=== PATIENT | female | born 1975 | race Two or more races ===

== ENCOUNTER 2023-01-30 07:08 | Day surgery (SDC) | payer MEDICAID ==
[~2023-01-30] VITALS: Ht 167.6 cm; Wt 113.4 kg
[2023-01-30] VITALS (9 sets, daily range): BP systolic 135–172; BP diastolic 68–92; PULSE 47–61; RESP 12–26; O2SAT 92–98
[~2023-01-30 07:08] MED LIST: ESCI5TAB PO; FENO145T27 PO; GABA-1250 PO; HYDRX10T PO; LEVO100T8 PO; MELO-335 PO; METO-158 PO; OLAN1TAB7 PO; ONDA-155 PO; OXY5T GT; POM; TIZA2CAP7 PO
[2023-01-30] MEDS ORDERED: LIDOCAINE 2%HCL (LOCAL ANESTH.) INJ 20ML MDV ONE (07:32)
[2023-01-30] MEDS ORDERED: IODIXANOL 320MG/ML 100ML BTL IV ONE (07:32)
[2023-01-30] MEDS ORDERED: IOHEXOL 350 MG/ML 100ML IJ ONE (07:32)
[2023-01-30] MEDS ORDERED: MIDAZOLAM HCL 2MG/2ML 2ml VIAL (1mg/ml) IV ONE (07:45)
[2023-01-30] MEDS ORDERED: LIDOCAINE VISCOUS 2% 15ML UD PO ONE (07:45)
[2023-01-30] MEDS ORDERED: ONDANSETRON HCL 4 MG/2 ML VIAL IV ONE (07:45)
[2023-01-30] MEDS ORDERED: fentaNYL CITRATE 100 MCG/2 ML VL IV ONE (07:45)
[2023-01-30] MEDS ORDERED: ANGIOMAX 250 MG VIAL IV ONE (08:16)
[2023-01-30] MEDS ORDERED: FLUMAZENIL 0.1 MG/ML INJ 10ML MDV IV ONE (08:16)
[2023-01-30] MEDS ORDERED: SODIUM CHL 0.9% 0 ML ONE (08:16)
[2023-01-30] MEDS ORDERED: NALOXONE HCL 0.4 MG/ML VIAL ONE (08:16)
[2023-01-30] MEDS ORDERED: VERAPAMIL 2.5MG/ML INJ 2ML VIAL IV ONE (08:16)
[2023-01-30] MEDS ORDERED: SODIUM CHL 0.9% 50 ML ONE ×2 (08:20→08:27)
[2023-01-30] MEDS ORDERED: HEPARIN SODIUM (PORCINE) 5000 UNITS/ML 1ML VIAL ONE (09:14)
== END 2023-01-30 11:35 | disposition home or self-care (01) ==
LOC: CATH 07:08
PROVIDERS: ATTEND Internal Medicine
DX: R07.89 Other chest pain (principal); I08.3 Combined rheumatic disorders of mitral, aortic and tricuspid valves
CPT/HCPCS: 93312; 93454; C1725; C1769; C1894; J1644; J2250; J3010; Q9967; 99152; 99153

== ENCOUNTER 2024-02-20 21:30 | Inpatient (IN) | payer MEDICAID ==
[~2024-02-20] VITALS: Ht 167.6 cm; Wt 110.2 kg
[~2024-02-20 21:30] MED LIST changes: -MELO-335 PO; +MELO15TA29 PO
[2024-02-20 21:56] LABS: Basophils # (auto) 0.1 10 ^3/uL (0-0.2); Basophils % (auto) 0.8 % (0.0-2.0); Eosinophils # (auto) 0.3 10 ^3/uL (0-0.8); Monocytes # (auto) 0.8 10 ^3/uL (0-1.3); Neutrophils # (auto) 6.8 10 ^3/uL (1.6-8.6)
[2024-02-20 21:57] LABS: Eosinophils % (auto) 3.1 % (0.0-7.0); Hematocrit 31.6 % (36.0-46.0); Hemoglobin 10.4 g/dL (12.2-16.2); Lymphocytes # (auto) 2.2 10 ^3/uL (0.4-5.4); Lymphocytes % (auto) 21.6 % (10.0-50.0); Mean Corpuscular Hemoglobin 25.2 pg (28.0-32.0); Mean Corpuscular Hgb Conc. 32.9 g/dL (32.0-36.0); Mean Corpuscular Volume 76.4 fL (80.0-100.0); Monocytes % (auto) 7.8 % (0.0-12.0); Neutrophils % (auto) 66.7 % (37.0-80.0); Platelet Count (auto) 180 10^3/uL (140-450); Red Blood Cells 4.13 10^6/uL (4.0-5.20); Red Cell Distribution Width 17.5 % (11.8-14.3); White Blood Cell 10.2 10^3/uL (4.4-10.8)
--- NOTE | 2024-02-20 21:57 | ED.PDOC ---
History of Present Illness HPI Comments 48-year-old female with Depression, Bipolar Disorder, Aortic Stenosis presents with a chief complaint of chest pain x 1 hour with associated SOB. Patient reports that her chest hurts to her left side, radiates up her bilateral neck, describes as sharp, and rates her pain a 8 out of 10. Patient mentions that this has happened to her before, but usually goes away after a few minutes, patient is now stating that it is lasting a lot longer. Patient is scheduled to have her Aortic Valve replaced next month. No other symptoms or modifying factors present at this time. Chief Complaint: Chest Pain Time Seen by MD: 21:44 Primary Care Provider: Luke Boss Reviewed Notes: Medications, Allergies Allergies: Coded Allergies: Avocado (Verified Allergy, Unknown, TONGUE NUMBNESS, 01/27/23) [place] Cream Flavor (Verified Allergy, Unknown, TONGUE NUMDNESS, 01/27/23) Pineapple (Verified Allergy, Unknown, TONGUE NUMBNESS, 01/27/23) Watermelon Flavor (Verified Allergy, Unknown, TONGUE NUMBNESS, 01/27/23) Home Meds Reported Medications Hydroxyzine Hcl (Hydroxyzine Hcl) 10 Mg Tab, 10 MG PO BID for HTN, MG 01/27/23 Fenofibrate (FENOFIBRATE) 145 Mg Tab, 1 TAB PO DAILY for CHOLESTEROL, #30 TAB 5 Refills 01/27/23 Tizanidine Hydrochloride (TIZANIDINE HCL) 2 Mg Cap, 2 MG PO TID for MUSCLE SPASMS, CAP 01/27/23 Metoprolol Tartrate (Metoprolol Tartrate) 50 Mg Tab, 25 MG PO DAILY for HTN for 30 Days, MG 01/27/23 Oxycodone Hcl (OXYCODONE HCL) 5 Mg Tb, 30 MG GT FOUR TIMES A DAY PRN for BACK PAIN, TAB 01/27/23 Ondansetron HCl (Ondansetron) 4 Mg Tab, 4 MG PO DAILY for NAUSEA/ VOMITING, TAB 01/27/23 Olanzapine (OLANZAPINE) 5 Mg Tab, 5 MG PO DAILY for DEPRESSION for 30 Days, MG 01/27/23 Meloxicam (Meloxicam) 15 Mg Tab, 1 TAB PO DAILY for OSTEOARTHRITIS, #30 TAB 2 Refills 01/27/23 Levothyroxine Sodium (Levothyroxine Sodium) 100 Mcg Tab, 100 MCG PO QAM for LOW THYROID for 30 Days, MCG 01/27/23 Escitalopram Oxalate (Lexapro) 5 Mg Tab, 1 TAB PO DAILY for DEPRESSION, #30 TAB 2 Refills 01/27/23 Gabapentin (Gabapentin) 300 Mg Cap, 300 MG PO TID, MG 01/27/23 Patients Own Medication (PATIENTS OWN MEDICATION) . 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 History: Denies all METALLOGRAPHER Hx Family History Family History: Reviewed,noncontributory to illness Social History Smoker: Non-Smoker Alcohol: Denies ETOH Use Drugs: Denies Drug Use Lives In: Home Constitutional: denies: chills, diaphoresis, fatigue, fever, malaise, sweats, weakness, others EENTM: denies: blurred vision, double vision, ear bleeding, ear discharge, ear drainage, ear pain, ear ringing, eye pain, eye redness, hearing loss, mouth pain, mouth swelling, nasal discharge, nose bleeding, nose congestion, nose pain, photophobia, tearing, throat pain, throat swelling, voice changes, others Respiratory: reports: shortness of breath; denies: cough, hemoptysis, orthopnea, SOB at rest, SOB with excertion, stridor, wheezing, others Cardiovascular: reports: chest pain; denies: dizzy spells, diaphoresis, Dyspnea on exertion, edema, irregular heart beat, left arm pain, lightheadedness, palpitations, PND, syncope, others Gastrointestinal: denies: abdomen distended, abdominal pain, blood streaked bowels, constipated, diarrhea, dysphagia, difficulty swallowing, hematemesis, m pa, nausea, poor appetite, poor fluid intake, rectal bleeding, rectal pain, vomiting, others Genitourinary: denies: abnormal vagina bleeding, burning, dyspareunia, dysuria, flank pain, frequency, hematuria, incontinence, pain, , vagina discharge, urgency, others Neurological: denies: dizziness, fainting, headache, left sided numbness, left sided weakness, numbness, paresthesia, pre-existing deficit, right sided numbness, right sided weakness, seizure, speech problems, tingling, tremors, weakness, others Musculoskeletal: denies: back pain, gout, joint pain, joint swelling, muscle pain, muscle stiffness, neck pain, others Integumetry: denies: bruises, change in color, change in hair/nails, dryness, laceration, lesions, lumps, rash, wounds, others Allergic/Immunocompromised: denies: Difficulty Healing, Frequent Infections, Hives, Itching, others Hematologic/Lymphatic: denies: anemia, blood clots, easy bleeding, easy bruising, swollen glands, others Endocrine: denies: excessive hunger, excessive sweating, excessive thirst, excessive urination, flushing, intolerance to cold, intolerance to heat, unexpla ined weight gain, unexplained weight loss, others Psychiatric: denies: anxiety, bipolar disorder, depression, hopeless, panic disorder, schizophrenia, sleepless, suicidal, others All Other Systems: Reviewed and Negative Physical Exam General Appearance: Moderate Distress, Normal HEENT: Normal ENT Inspection, Pharynx Normal, TMs Normal Neck: Full Range of Motion, Non-Tender, Normal, Normal Inspection Respiratory: Chest Non-Tender, Lungs Clear, No Accessory Muscle Use, No Respiratory Distress, Normal Breath Sounds Cardiovascular: No Edema, No JVD, No Murmur, No Gallop, Normal Peripheral Pulses, Regular Rate/Rhythm Breast Exam: Deferred Gastrointestinal: No Organomegaly, Non Tender, No Pulsatile Mass, Normal Bowel Sounds, Soft Genitalia: Deferred Pelvic: Deferred Rectal: Deferred Extremities: No calf tenderness, Normal capillary refill, Normal inspection, Normal range of motion, Non-tender, No pedal edema Musculoskeletal : Apperance: Normal Neurologic: Alert, senior energy consultant II-XII 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 Was a procedure done?: No Differential Dx Considerations may include: TX angina arrhythmia aortic stenosis versus regurgitation X-Ray, Labs, Meds, VS Vital Signs Date Time Temp Pulse Resp B/P (MAP) Pulse Ox O2 Delivery O2 Flow Rate FiO2 02/20/24 22:34 67 02/20/24 21:38 98.2 76 20 119/65 (83) 100 02/20/24 21:36 73 Lab Test 02/20/24 22:35 02/20/24 21:42 Range/Units Troponin I High Sensitivity 11 12 </=34 ng/L White Blood Count 10.2 4.4-10.8 10^3/uL Red Blood Count 4.13 4.0-5.20 10^6/uL Hemoglobin 10.4 L 12.2-16.2 g/dL Hematocrit 31.6 L 36.0-46.0 % Mean Corpuscular Volume 76.4 L 80.0-100.0 fL Mean Corpuscular Hemoglobin 25.2 L 28.0-32.0 pg Mean Corpuscular Hemoglobin Concent 32.9 32.0-36.0 g/dL Red Cell Distribution Width 17.5 H 11.8-14.3 % Platelet Count 180 140-450 10^3/uL Mean Platelet Volume 9.3 6.9-10.8 fL Neutrophils (%) (Auto) 66.7 37.0-80.0 % Lymphocytes (%) (Auto) 21.6 10.0-50.0 % Monocytes (%) (Auto) 7.8 0.0-12.0 % Eosinophils (%) (Auto) 3.1 0.0-7.0 % Basophils (%) (Auto) 0.8 0.0-2.0 % Neutrophils # (Auto) 6.8 1.6-8.6 10 ^3/uL Lymphocytes # (Auto) 2.2 0.4-5.4 10 ^3/uL Monocytes # (Auto) 0.8 0-1.3 10 ^3/uL Eosinophils # (Auto) 0.3 0-0.8 10 ^3/uL Basophils # (Auto) 0.1 0-0.2 10 ^3/uL Nucleated Red Blood Cells 0.0 % Prothrombin Time 10.0 9.3-11.8 sec Prothrombin Time INR 0.94 0.9-1.15 Activated Partial Thromboplast Time 28.2 24.5-34.5 SEC Sodium Level 137 136-145 mmol/L Potassium Level 4.0 3.5-5.1 mmol/L Chloride Level 108 H 98-107 mmol/L Carbon Dioxide Level 23 20-31 mmol/L Anion Gap 6 5-15 Blood Urea Nitrogen 14 9-23 mg/dL Creatinine 0.64 0.550-1.02 mg/dL Glomerular Filtration Rate Calc 108 >90 mL/min BUN/Creatinine Ratio 21.9 H 10.0-20.0 Serum Glucose 92 74-106 mg/dL Calcium Level 9.5 8.7-10.4 mg/dL Magnesium Level 1.9 1.6-2.6 mg/dL Total Bilirubin 0.2 0.2-1.0 mg/dL Aspartate Amino Transferase (AST) 13 13-40 U/L Alanine Aminotransferase (ALT) 18 7-40 U/L Alkaline Phosphatase 79 46-116 U/L B-Type Natriuretic Peptide 55.33 0-100 pg/mL Total Protein 7.3 5.7-8.2 g/dL Albumin 4.3 3.2-4.8 g/dL PATIENT: SUNNY KEITA MACCT: [id number]: [id number] : 1975 LOC: ER ROOM / BED: / AGE / SEX: 48 / F ADM STATUS: REG ER SERVICE 36 ORDERING PHYSICIAN: ABBIE GOODMAN MD PROCEDURE(s): CXRP - CHEST PORTABLE REASON: CP ORDER NUMBER(s): [id number], ACCESSION NUMBER(s): [id number] CHEST RADIOGRAPH Indication:CP Technique: Single frontal view of the chest was obtained Comparison: None FINDINGS: Lines and Tubes: Anterior fusion lower cervical spine Lungs: No focal consolidation. Pleura: No effusion. No pneumothorax. Cardiomediastinal contours: Unremarkable Bones: No acute osseous abnormality. IMPRESSION: 1. No acute cardiopulmonary disease. ATED BY: SOPHIA OSORIO Jr., DO DICTATED DATE/TIME: 02/20/242240 SIGNED BY: SOPHIA OSORIO Jr., DO SIGNED DATE/TIME: 02/20/242240 First troponin is 12. Second troponin is 11. EKG reveals a heart rate of 73 normal sinus rhythm with LVH. Hemoglobin is 10.4. BNP is 55. Magnesium is 1.9. The patient has high cardiac risk and is scheduled for atrial valve replacement in less than a week. We will admit the patient to the hospitalist for further evaluation and care. Cardiology consult was ordered. Time of 1ST Reevaluation: 22:14 Reevaluation 1ST: Unchanged Patient Education/Counseling: Diagnosis, Treatment, Prognosis Family Education/Counseling: No Family Present Departure 1 Departure Time of Disposition: 01:20 Impression: Primary Impression: Chest pain Qualified Codes: R07.9 - Chest pain, unspecified Additional Impressions: Acute coronary syndrome Aortic valve stenosis Qualified Codes: I35.0 - Nonrheumatic aortic (valve) stenosis Disposition: 09 ADMITTED INPATIENT Admit to: Tele Condition: Guarded Critical Care Note Critical Care Time?: Yes (35 min-critical care time only) Stability Stability form required: No I personally scribed for ABBIE GOODMAN MD ([email or web address]) on 02/20/24 at 21:57. Electronically submitted by Jeff Woo ([email or web address]). I personally scribed for ABBIE GOODMAN MD ([email or web address]) on 02/21/24 at 01:14. Electronically submitted by Jeff Woo ([email or web address]). ABBIE GOODMAN MD Feb 20, 2024 21:57
[2024-02-20 22:15] LABS: Alanine Aminotransferase 18 U/L (7-40); Albumin 4.3 g/dL (3.2-4.8); Alkaline Phosphatase 79 U/L (46-116); Anion Gap 6 (5-15); Aspartate Aminotransferase 13 U/L (13-40); BUN/Creatinine Ratio 21.9 (10.0-20.0); Bilirubin, Total 0.2 mg/dL (0.2-1.0); Blood Urea Nitrogen 14 mg/dL (9-23); Calcium 9.5 mg/dL (8.7-10.4); Carbon Dioxide 23 mmol/L (20-31); Chloride 108 mmol/L (98-107); Glucose 92 mg/dL (74-106); Magnesium 1.9 mg/dL (1.6-2.6); Sodium 137 mmol/L (136-145); Total Protein 7.3 g/dL (5.7-8.2)
[2024-02-20 22:17] LABS: INR 0.94 (0.9-1.15); Partial Thromboplastin Time 28.2 SEC (24.5-34.5)
--- NOTE | 2024-02-20 22:44 | DVH ---
CHEST RADIOGRAPH Indication:CP Technique: Single frontal view of the chest was obtained Comparison: None FINDINGS: Lines and Tubes: Anterior fusion lower cervical spine Lungs: No focal consolidation. Pleura: No effusion. No pneumothorax. Cardiomediastinal contours: Unremarkable Bones: No acute osseous abnormality. IMPRESSION: 1. No acute cardiopulmonary disease.
[2024-02-21] VITALS (7 sets, daily range): BP systolic 100–126; BP diastolic 38–61; PULSE 64–82; RESP 16–20; TEMP 98–98.7; O2SAT 96–98
[2024-02-21] MEDS: MORPHINE SULFATE 4 MG/ML SYR/VIAL IV ONE (02:03)
[2024-02-21] MEDS: ONDANSETRON HCL 4 MG/2 ML VIAL IV ONE (02:03)
[2024-02-21] MEDS: ASPirin-EC 325mg tab PO ONE (02:04)
[2024-02-21] MEDS ORDERED: NITROGLYCERIN 0.4 MG SL TAB SL PRN (05:15)
[2024-02-21] MEDS ORDERED: ONDANSETRON HCL 4 MG/2 ML VIAL IV PRN (05:15)
[2024-02-21] MEDS: LEVOTHYROXINE SODIUM 100 MCG TAB PO SCH (06:15)
--- NOTE | 2024-02-21 06:29 | DVHHP2 ---
History of Present Illness Reason for Visit: Chest pain History of Present Illness 48-year-old female presents with a complaint of chest pain. Patient reports a one day history of substernal chest pain that initially was sharp now is pressure like and radiates to bilateral neck. Denies nausea or vomiting. No dizziness. Denies any other acute complaints. She does report having a history of aortic stenosis and will have an aortic valve replacement next month. Past Medical History Aortic stenosis, hypertension, hypothyroid, depression Past Surgical History Left leg surgery, back surgery Family History Noncontributory Smoke: No ALCOHOL: none Drugs: None Lives: with Family Review of Systems Review of Systems Review of systems are currently negative otherwise addressed in HPI. Allergies: Coded Allergies: Avocado (Verified Allergy, Unknown, TONGUE NUMBNESS, 01/27/23) [place] Cream Flavor (Verified Allergy, Unknown, TONGUE NUMDNESS, 01/27/23) Pineapple (Verified Allergy, Unknown, TONGUE NUMBNESS, 01/27/23) Watermelon Flavor (Verified Allergy, Unknown, TONGUE NUMBNESS, 01/27/23) Medications Current Medications Medications Dose Ordered Sig/Sheryl Route Start Time Stop Time Status Last Admin Dose Admin Aspirin 162 mg DAILY PO 02/21/24 10:00 Atorvastatin Calcium 10 mg HS PO 02/21/24 22:00 Gabapentin 300 mg BID PO 02/21/24 10:00 Metoprolol Succinate 25 mg DAILY PO 02/21/24 10:00 Levothyroxine Sodium 100 mcg QAM@0600 PO 02/21/24 06:00 02/21/24 06:15 100 MCG Temazepam 15 mg QHSP PRN PO 02/21/24 05:15 Ondansetron HCl 4 mg Q4HP PRN IV 02/21/24 05:15 Acetaminophen 650 mg Q6HP PRN PO 02/21/24 05:15 Nitroglycerin 0.4 mg Q5MINP PRN SL 02/21/24 05:15 Morphine Sulfate 2 mg Q30M PRN IV 02/21/24 05:15 Exam Vital Signs Vital Signs Date Time Temp Pulse Resp B/P (MAP) Pulse Ox O2 Delivery O2 Flow Rate FiO2 02/21/24 02:33 68 18 102/46 (64) 96 02/21/24 01:56 Room Air* 0 21 02/20/24 21:38 98.2 Exam Gen: 48-year-old female in mild distress, morbidly Skin: Warm, dry, normal color and texture, no rash. HEENT: Normocephalic atraumatic, mucous membranes moist and pink. Neck: Cervical and supraclavicular nodes normal without enlargement, trachea is midline, thyroid gland is normal without masses. Pulmonary: Clear to auscultation and percussion bilaterally. Cardiac: Regular rate and rhythm. No murmur Abdomen: Soft, nontender, nondistended, bowel sounds present all 4 quadrants, no guarding, no rigidity, no organomegaly. Extremities: No cyanosis, clubbing, no edema Neuro: Cranial nerves II through XII grossly intact, normal affect and speech, no focal motor deficits. Labs/Xrays ORDERING PHYSICIAN: ABBIE GOODMAN MD PROCEDURE(s): CXRP - CHEST PORTABLE REASON: CP ORDER NUMBER(s): [id number], ACCESSION NUMBER(s): [id number] CHEST RADIOGRAPH Indication:CP Technique: Single frontal view of the chest was obtained Comparison: None FINDINGS: Lines and Tubes: Anterior fusion lower cervical spine Lungs: No focal consolidation. Pleura: No effusion. No pneumothorax. Cardiomediastinal contours: Unremarkable Bones: No acute osseous abnormality. IMPRESSION: 1. No acute cardiopulmonary disease. Labs Test 02/20/24 22:35 02/20/24 21:42 Range/Units Troponin I High Sensitivity 11 </=34 ng/L White Blood Count 10.2 4.4-10.8 10^3/uL Red Blood Count 4.13 4.0-5.20 10^6/uL Hemoglobin 10.4 L 12.2-16.2 g/dL Hematocrit 31.6 L 36.0-46.0 % Mean Corpuscular Volume 76.4 L 80.0-100.0 fL Mean Corpuscular Hemoglobin 25.2 L 28.0-32.0 pg Mean Corpuscular Hemoglobin Concent 32.9 32.0-36.0 g/dL Red Cell Distribution Width 17.5 H 11.8-14.3 % Platelet Count 180 140-450 10^3/uL Mean Platelet Volume 9.3 6.9-10.8 fL Neutrophils (%) (Auto) 66.7 37.0-80.0 % Lymphocytes (%) (Auto) 21.6 10.0-50.0 % Monocytes (%) (Auto) 7.8 0.0-12.0 % Eosinophils (%) (Auto) 3.1 0.0-7.0 % Basophils (%) (Auto) 0.8 0.0-2.0 % Neutrophils # (Auto) 6.8 1.6-8.6 10 ^3/uL Lymphocytes # (Auto) 2.2 0.4-5.4 10 ^3/uL Monocytes # (Auto) 0.8 0-1.3 10 ^3/uL Eosinophils # (Auto) 0.3 0-0.8 10 ^3/uL Basophils # (Auto) 0.1 0-0.2 10 ^3/uL Nucleated Red Blood Cells 0.0 % Prothrombin Time 10.0 9.3-11.8 sec Prothrombin Time INR 0.94 0.9-1.15 Activated Partial Thromboplast Time 28.2 24.5-34.5 SEC Sodium Level 137 136-145 mmol/L Potassium Level 4.0 3.5-5.1 mmol/L Chloride Level 108 H 98-107 mmol/L Carbon Dioxide Level 23 20-31 mmol/L Anion Gap 6 5-15 Blood Urea Nitrogen 14 9-23 mg/dL Creatinine 0.64 0.550-1.02 mg/dL Glomerular Filtration Rate Calc 108 >90 mL/min BUN/Creatinine Ratio 21.9 H 10.0-20.0 Serum Glucose 92 74-106 mg/dL Calcium Level 9.5 8.7-10.4 mg/dL Magnesium Level 1.9 1.6-2.6 mg/dL Total Bilirubin 0.2 0.2-1.0 mg/dL Aspartate Amino Transferase (AST) 13 13-40 U/L Alanine Aminotransferase (ALT) 18 7-40 U/L Alkaline Phosphatase 79 46-116 U/L B-Type Natriuretic Peptide 55.33 0-100 pg/mL Total Protein 7.3 5.7-8.2 g/dL Albumin 4.3 3.2-4.8 g/dL Assessment/Plan Assessment/Plan Assessment Chest pain rule out ACS Aortic valve stenosis Hypertension Morbid obesity Hypothyroid Plan Admit the patient to telemetry to the hospitalist ACS protocol Cardiology consultation Resume home medications Continue treatment per orders. Plan discussed with: Patient My Orders Orders - SHAHZAD HUANG Procedure Category Date Status Time Aspirin Tablet PHA 02/21/24 In Process 10:00 Atorvastatin (Lipitor) PHA 02/21/24 In Process 22:00 Gabapentin Capsule PHA 02/21/24 In Process (Neurontin Capsule) 10:00 Metoprolol Xl PHA 02/21/24 In Process Succinate (Toprol Xl) 10:00 Levothyroxine Tablet PHA 02/21/24 In Process (Synthroid Tablet) 06:00 Basic Metabolic Panel LAB 02/22/24 Verified 04:00 Admit ADMIT 02/21/24 Transmitted 05:11 Temazepam (Restoril) PHA 02/21/24 In Process 05:15 Ondansetron Hcl [facility] 02/21/24 In Process (Zofran) 05:15 Cardiac DIET 02/21/24 Transmitted Diet-2gna,Lofat,Lochol Breakfast Echo 2d Mode Cardiac US 02/21/24 Logged DOP 05:11 Condition: Fair [facility] 02/21/24 In Process 05:11 Acetaminophen Tablet [facility] 02/21/24 In Process (Tylenol Tablet) 05:15 Bedrest With Bathroom [facility] 02/21/24 In Process Privileg 05:11 Nitroglycerin [facility] 02/21/24 In Process Sublingual (Ntrostat 05:15 Morphine Sulfate [facility] 02/21/24 In Process Injection 05:15 Stat Ekg For Chest [facility] 02/21/24 In Process Pain 05:11 Notify Md Of Changes [facility] 02/21/24 In Process From Base 05:11 Global Program Manager For [facility] 02/21/24 In Process 24 Hours 05:11 Emergency Dysrhythmia [facility] 02/21/24 In Process Protocol 05:11 Rhythm Strips Once [facility] 02/21/24 In Process Every Shift 05:11 Oxygen By Nasal RT 02/21/24 Transmitted Cannula 05:11 Date of Service: Feb 21, 2024 Billing Provider: SHAHZAD HUANG Common Visit Codes: [id number] INP/OBS CARE (HIGH) SHAHZAD HUANG Feb 21, 2024 06:29
--- NOTE | 2024-02-21 06:49 | ECG ---
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
--- NOTE | 2024-02-21 07:51 | DVHINCON2 ---
Date of service: Feb 21, 2024 History of Present Illness 48 yo F with hx of bicuspid AV and significant admitted for chest pain. trops are - Past Medical History reviewed Allergies: Coded Allergies: Avocado (Verified Allergy, Unknown, TONGUE NUMBNESS, 01/27/23) [place] Cream Flavor (Verified Allergy, Unknown, TONGUE NUMDNESS, 01/27/23) Pineapple (Verified Allergy, Unknown, TONGUE NUMBNESS, 01/27/23) Watermelon Flavor (Verified Allergy, Unknown, TONGUE NUMBNESS, 01/27/23) Home Meds Reported Medications Hydroxyzine Hcl (Hydroxyzine Hcl) 10 Mg Tab, 10 MG PO BID for HTN, MG 01/27/23 Fenofibrate (FENOFIBRATE) 145 Mg Tab, 1 TAB PO DAILY for CHOLESTEROL, #30 TAB 5 Refills 01/27/23 Tizanidine Hydrochloride (TIZANIDINE HCL) 2 Mg Cap, 2 MG PO TID for MUSCLE SPASMS, CAP 01/27/23 Metoprolol Tartrate (Metoprolol Tartrate) 50 Mg Tab, 25 MG PO DAILY for HTN for 30 Days, MG 01/27/23 Oxycodone Hcl (OXYCODONE HCL) 5 Mg Tb, 30 MG GT FOUR TIMES A DAY PRN for BACK PAIN, TAB 01/27/23 Ondansetron HCl (Ondansetron) 4 Mg Tab, 4 MG PO DAILY for NAUSEA/ VOMITING, TAB 01/27/23 Olanzapine (OLANZAPINE) 5 Mg Tab, 5 MG PO DAILY for DEPRESSION for 30 Days, MG 01/27/23 Meloxicam (Meloxicam) 15 Mg Tab, 1 TAB PO DAILY for OSTEOARTHRITIS, #30 TAB 2 Refills 01/27/23 Levothyroxine Sodium (Levothyroxine Sodium) 100 Mcg Tab, 100 MCG PO QAM for LOW THYROID for 30 Days, MCG 01/27/23 Escitalopram Oxalate (Lexapro) 5 Mg Tab, 1 TAB PO DAILY for DEPRESSION, #30 TAB 2 Refills 01/27/23 Gabapentin (Gabapentin) 300 Mg Cap, 300 MG PO TID, MG 01/27/23 Patients Own Medication (PATIENTS OWN MEDICATION) . PTS OWN MED-OBTAIN FROM PT AND SEND TO RX DRUG: FREQ: RX# EXP: DATE DISP: TECH: [facility]: 01/27/23 Current Medications Current Medications Medications (Trade) Dose Ordered Sig/Sheryl Route PRN Reason Start Time Stop Time Status Last Admin Aspirin 162 mg DAILY PO 02/21/24 10:00 Atorvastatin Calcium (Lipitor) 10 mg HS PO 02/21/24 22:00 Gabapentin (Neurontin Capsule) 300 mg BID PO 02/21/24 10:00 Metoprolol Succinate (Toprol Xl) 25 mg DAILY PO 02/21/24 10:00 Levothyroxine Sodium (Synthroid Tablet) 100 mcg QAM@0600 PO 02/21/24 06:00 02/21/24 06:15 Temazepam (Restoril) 15 mg QHSP PRN PO FOR INSOMNIA 02/21/24 05:15 Ondansetron HCl (Zofran) 4 mg Q4HP PRN IV NAUSEA / VOMITING 02/21/24 05:15 Acetaminophen (Tylenol Tablet) 650 mg Q6HP PRN PO PAIN SCALE 1-3 OR TEMP>100.4 02/21/24 05:15 Nitroglycerin (Ntrostat Sublingual) 0.4 mg Q5MINP PRN SL FOR CHEST PAIN 02/21/24 05:15 Morphine Sulfate 2 mg Q30M PRN IV FOR CHEST PAIN 02/21/24 05:15 Review of Systems 10 pt ros otherwise negative Vital Signs Vital Signs Date Time Temp Pulse Resp B/P (MAP) Pulse Ox O2 Delivery O2 Flow Rate FiO2 02/21/24 07:27 65 16 107/52 (70) 98 02/21/24 01:56 Room Air* 0 21 02/20/24 21:38 98.2 Physical Exam nad s1 s2 rrr 3/6 systolic mur mur ctab soft nt/nd no edema Labs/Diagnostic Data Labs Test 02/20/24 22:35 02/20/24 21:42 Range/Units Troponin I High Sensitivity 11 </=34 ng/L White Blood Count 10.2 4.4-10.8 10^3/uL Red Blood Count 4.13 4.0-5.20 10^6/uL Hemoglobin 10.4 L 12.2-16.2 g/dL Hematocrit 31.6 L 36.0-46.0 % Mean Corpuscular Volume 76.4 L 80.0-100.0 fL Mean Corpuscular Hemoglobin 25.2 L 28.0-32.0 pg Mean Corpuscular Hemoglobin Concent 32.9 32.0-36.0 g/dL Red Cell Distribution Width 17.5 H 11.8-14.3 % Platelet Count 180 140-450 10^3/uL Mean Platelet Volume 9.3 6.9-10.8 fL Neutrophils (%) (Auto) 66.7 37.0-80.0 % Lymphocytes (%) (Auto) 21.6 10.0-50.0 % Monocytes (%) (Auto) 7.8 0.0-12.0 % Eosinophils (%) (Auto) 3.1 0.0-7.0 % Basophils (%) (Auto) 0.8 0.0-2.0 % Neutrophils # (Auto) 6.8 1.6-8.6 10 ^3/uL Lymphocytes # (Auto) 2.2 0.4-5.4 10 ^3/uL Monocytes # (Auto) 0.8 0-1.3 10 ^3/uL Eosinophils # (Auto) 0.3 0-0.8 10 ^3/uL Basophils # (Auto) 0.1 0-0.2 10 ^3/uL Nucleated Red Blood Cells 0.0 % Prothrombin Time 10.0 9.3-11.8 sec Prothrombin Time INR 0.94 0.9-1.15 Activated Partial Thromboplast Time 28.2 24.5-34.5 SEC Sodium Level 137 136-145 mmol/L Potassium Level 4.0 3.5-5.1 mmol/L Chloride Level 108 H 98-107 mmol/L Carbon Dioxide Level 23 20-31 mmol/L Anion Gap 6 5-15 Blood Urea Nitrogen 14 9-23 mg/dL Creatinine 0.64 0.550-1.02 mg/dL Glomerular Filtration Rate Calc 108 >90 mL/min BUN/Creatinine Ratio 21.9 H 10.0-20.0 Serum Glucose 92 74-106 mg/dL Calcium Level 9.5 8.7-10.4 mg/dL Magnesium Level 1.9 1.6-2.6 mg/dL Total Bilirubin 0.2 0.2-1.0 mg/dL Aspartate Amino Transferase (AST) 13 13-40 U/L Alanine Aminotransferase (ALT) 18 7-40 U/L Alkaline Phosphatase 79 46-116 U/L B-Type Natriuretic Peptide 55.33 0-100 pg/mL Total Protein 7.3 5.7-8.2 g/dL Albumin 4.3 3.2-4.8 g/dL Assessment hx of severe chest pain obesity Plan/Recommendation trops are - bnp is normal bp is normal C was - will d/w CT surgery outpt team Plan discussed with: Patient ROBERT WASHINGTON MD Feb 21, 2024 07:51
--- NOTE | 2024-02-21 09:46 | ECG ---
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
[2024-02-21] MEDS: ASPirin 81 mg TAB PO SCH (10:44)
[2024-02-21] MEDS: GABAPENTIN 300 MG CAP PO SCH (10:44)
[2024-02-21] MEDS: METOPROLOL SUCCINATE XL 50 MG TAB PO SCH (10:45)
[2024-02-21] MEDS: MORPHINE SULFATE INJ 2 MG/ml SYRG IV PRN (10:59)
[2024-02-21] MEDS: ACETAMINOPHEN 325 MG TAB PO PRN (14:12)
[2024-02-21] MEDS ORDERED: ESCI1TAB36 PO (15:41)
[2024-02-21] MEDS ORDERED: BACL10TA PO (15:41)
--- NOTE | 2024-02-21 15:45 | DVHPN2 ---
Subjective Patient continues to report having intermittent substernal chest pain without radiation. Reviewed: Care Plan, H&P, Labs, Medications Changes from previous H/P or p: No Changes General: Per HPI Objective Vitals Vital Signs Date Time Temp Pulse Resp B/P (MAP) Pulse Ox O2 Delivery O2 Flow Rate FiO2 02/21/24 12:04 98.3 72 16 109/56 (73) 96 98.3 02/21/24 08:00 Room Air* 0 21 General Appearance: Alert, Oriented X3, Cooperative, No acute distress HEENT: Atraumatic, PERRLA Neck: Carotid Bruits [place] Lungs: Clear to auscultation Cardiovascular: Normal S1, Normal S2, Other (Systolic murmur) Abdomen: Normal bowel sounds, Soft, No tenderness Genitourinary: No Apparent Abnormalities Musculoskeletal: Normal sensory function, Normal motor function Neuro: Normal gait, Normal speech, Strength at 5/5 X4 ext Psych/Mental Status: Mental status NL, Mood NL Medications Current Medications Medications Dose Ordered Sig/Sheryl Route Start Time Stop Time Status Last Admin Dose Admin Aspirin 162 mg DAILY PO 02/21/24 10:00 02/21/24 10:44 162 MG Atorvastatin Calcium 10 mg HS PO 02/21/24 22:00 Gabapentin 300 mg BID PO 02/21/24 10:00 02/21/24 10:44 300 MG Metoprolol Succinate 25 mg DAILY PO 02/21/24 10:00 02/21/24 10:45 25 MG Levothyroxine Sodium 100 mcg QAM@0600 PO 02/21/24 06:00 02/21/24 06:15 100 MCG Temazepam 15 mg QHSP PRN PO 02/21/24 05:15 Ondansetron HCl 4 mg Q4HP PRN IV 02/21/24 05:15 Acetaminophen 650 mg Q6HP PRN PO 02/21/24 05:15 02/21/24 14:12 650 MG Nitroglycerin 0.4 mg Q5MINP PRN SL 02/21/24 05:15 Morphine Sulfate 2 mg Q30M PRN IV 02/21/24 05:15 02/21/24 10:59 2 MG Laboratory Results Laboratory Tests 02/20/24 21:42 Chemistry Test 02/20/24 21:42 Albumin 4.3 g/dL (3.2-4.8) Calcium Level 9.5 mg/dL (8.7-10.4) Magnesium Level 1.9 mg/dL (1.6-2.6) Total Protein 7.3 g/dL (5.7-8.2) Coagulation Test 02/20/24 21:42 Prothrombin Time 10.0 sec (9.3-11.8) Prothrombin Time INR 0.94 (0.9-1.15) Activated Partial Thromboplast Time 28.2 SEC (24.5-34.5) Cardiac Markers Test 02/20/24 21:42 B-Type Natriuretic Peptide 55.33 pg/mL (0-100) LFT Test 02/20/24 21:42 Alanine Aminotransferase (ALT) 18 U/L (7-40) Alkaline Phosphatase 79 U/L (46-116) Aspartate Amino Transferase (AST) 13 U/L (13-40) Total Bilirubin 0.2 mg/dL (0.2-1.0) Labs and/or images reviewed: Labs reviewed by me, Image(s) reviewed by me Assessment/Plan Assessment/Plan Impression: -chest pain probably secondary to aortic stenosis (bicuspid valve) -obesity -bipolar disorder -asthma -primary hypertension -dyslipidemia -GERD Plan: -cardiology consultation: Recommendations reviewed by Dr. Padgett -continue antihypertensives -restart home meds for bipolar disorder -PPI -further course of care per recommendations by Cardiology Total time spent with patient discussing and formulating plan of care: 35 minutes. This medical document was created using an electronic medical record system with [employer] dictation system. Although this document has been carefully reviewed, there may still be some phonetic and typographical errors. These areas are purely typographical due to imperfections of the software programs, and do not reflect any compromise in the patient's medical care. Plan discussed with: Patient, Other (RN) My Orders Orders - CONNER STATON NP Procedure Category Date Status Time Baclofen Tablet PHA 02/21/24 Verified (Liorisal Tablet) 22:00 Date of Service: Feb 21, 2024 Billing Provider: CONNER STATON NP Common Visit Codes: [id number] INP/OBS CARE(HIGH) CONNER STATON NP Feb 21, 2024 15:45
[2024-02-21] MEDS: HYDROcodone-ACET 5/325MG TAB PO PRN (19:26)
[2024-02-21] MEDS: ATORVASTATIN 20 MG TAB PO SCH (22:04)
[2024-02-21] MEDS: BACLOFEN 10 MG TAB PO SCH (22:05)
[2024-02-22] MEDS: TEMAZEPAM 15 MG CAP PO PRN (00:03)
[2024-02-22] MEDS ORDERED: GABAPENTIN 100 MG CAP PO SCH (01:30)
[2024-02-22 05:00] VITALS: BP 114/72; PULSE 73; RESP 18; TEMP 98; O2SAT 96
[2024-02-22 06:01] LABS: Anion Gap 10 (5-15); Carbon Dioxide 20 mmol/L (20-31); Chloride 110 mmol/L (98-107); Potassium 3.9 mmol/L (3.5-5.1); Sodium 140 mmol/L (136-145)
[2024-02-22 06:02] LABS: Calcium 9.6 mg/dL (8.7-10.4)
[2024-02-22 06:06] LABS: Glucose 124 mg/dL (74-106)
[2024-02-22 06:07] LABS: BUN/Creatinine Ratio 18.8 (10.0-20.0); Blood Urea Nitrogen 12 mg/dL (9-23)
[2024-02-22 07:39] VITALS: BP 119/66; PULSE 61; RESP 18; TEMP 98.3; O2SAT 98
[2024-02-22 08:00] VITALS: PULSE 61; PULSE 71; RESP 18; O2SAT 98
--- NOTE | 2024-02-22 11:03 | DVHPN2 ---
Progress Note Date Seen: Feb 22, 2024 Medical Necessity Reason Pt with a Central, PICC or Fol: No Subjective Patient reports: Feels better Objective vital signs Vital Sign Date Time Temp Pulse Resp B/P (MAP) Pulse Ox O2 Delivery O2 Flow Rate FiO2 02/22/24 08:50 82 132/71 02/22/24 08:00 18 98 Room Air* 0 21 02/22/24 07:39 98.3 98.3 Total Intake and Output 02/21/24 02/21/24 02/22/24 15:00 23:00 07:00 Intake Total 400 ml 750 ml Balance 400 ml 750 ml medications Current Medications Medications Dose Ordered Sig/Sheryl Route Start Time Stop Time Status Last Admin Dose Admin Aspirin 162 mg DAILY PO 02/21/24 10:00 02/22/24 08:49 162 MG Atorvastatin Calcium 10 mg HS PO 02/21/24 22:00 02/21/24 22:04 10 MG Gabapentin 300 mg BID PO 02/21/24 10:00 02/22/24 08:49 300 MG Metoprolol Succinate 25 mg DAILY PO 02/21/24 10:00 02/22/24 08:50 25 MG Levothyroxine Sodium 100 mcg QAM@0600 PO 02/21/24 06:00 02/22/24 05:52 100 MCG Temazepam 15 mg QHSP PRN PO 02/21/24 05:15 02/22/24 00:03 15 MG Ondansetron HCl 4 mg Q4HP PRN IV 02/21/24 05:15 Acetaminophen 650 mg Q6HP PRN PO 02/21/24 05:15 02/21/24 14:12 650 MG Nitroglycerin 0.4 mg Q5MINP PRN SL 02/21/24 05:15 Morphine Sulfate 2 mg Q30M PRN IV 02/21/24 05:15 02/21/24 10:59 2 MG Baclofen 10 mg BID PO 02/21/24 22:00 02/22/24 08:49 10 MG Acetaminophen/ Hydrocodone Bitart 1 tab Q6HPRN PRN PO 02/21/24 17:30 02/22/24 03:13 1 TAB Gabapentin 100 mg PRN PO 02/22/24 01:30 Hold Examination: GENERAL:Abnormal, HEENT:Abnormal, CVS:Normal, CVS:Abnormal, ABDOMEN:Abnormal laboratory and microbiology Laboratory Tests 02/22/24 05:19 02/20/24 21:42 Test 02/22/24 05:19 Range/Units Serum Glucose 124 H 74-106 mg/dL Problem List/Assessment/Plan Problem List/Assessment/Plan spoke with dr spear per CTS--pt has been non compliant with outpt testing recommendation to dc home with current meds and fu CTS hanane no in hospital testing was requested by CT surgery pt needs to call their outpt office Plan discussed with: Patient Date of Service: Feb 22, 2024 Billing Provider: ROBERT WASHINGTON MD Common Visit Codes: NOT BILLABLE ROBERT WASHINGTON MD Feb 22, 2024 11:03
[2024-02-22] MEDS ORDERED: oxyCODONE HCL 5MG TAB PO PRN (11:15)
--- NOTE | 2024-02-22 11:30 | DVHSR ---
APPROVED REPORT EXAM: Two-dimensional and M-mode echocardiogram with Doppler and color Doppler. Blood Pressure: 119/66 mmHg INDICATION Chest Pain RISK FACTORS Height: 66, Weight: 242 DIMENSIONS LVDd3.9 (3.8-5.7cm)LA (2D)4.0 (1.9-4.0cm)Aortic Root3.4 (2.0-3.7cm) LVDs2.8 (2.5-4.0cm)LA (MM) (1.9-4.0cm)Aortic Cusp Exc1.4 (1.5-2.0cm) EF (%) 55.0 (55-70%)Rt. Atrium3.6 (1.9-4.0cm)Asc. Aorta cm Mitral Valve MitralMitral Stenosis E wave0.87m/sMV Mean GR.5mmHg A wave1.05m/sMV Peak GR.11mmHg E/A ratio0.82D MVAcm2 DECEL [id number] 1/2 [id number] IVRTmsDop MVA3.01cm2 Aortic Valve Aortic ValveAortic Stenosis V11.60m/Marek Mean GR.59mmHg V24.91m/Marek Peak GR.96mmHg LVOT Diameter2.1 (1.8-2.4cm)Doppler AVA1.13cm2 Pulmonic Valve V21.24m/s Other Information Technically limited study due to body habitus. Conclusion lvef 65% bicuspid AV severe , mean gradient now >50 mmhg
[2024-02-22 11:41] VITALS: BP 132/71; PULSE 82; RESP 18; TEMP 98.3; O2SAT 98
[2024-02-22 11:53] VITALS: BP 119/70; PULSE 80; RESP 18; TEMP 98.4; O2SAT 97
--- NOTE | 2024-02-22 11:54 | DVHDS2 ---
Discharge Summary Date of Admission Feb 21, 2024 at 05:15 Date of Discharge: Feb 22, 2024 Admitting Diagnosis Chest pain, rule out ACS Labs/Diagnostic Data: Laboratory Results Test 02/22/24 05:19 02/20/24 22:35 02/20/24 21:42 Sodium Level 140 mmol/L (136-145) Potassium Level 3.9 mmol/L (3.5-5.1) Chloride Level 110 mmol/L (98-107) Carbon Dioxide Level 20 mmol/L (20-31) Anion Gap 10 (5-15) Blood Urea Nitrogen 12 mg/dL (9-23) Creatinine 0.64 mg/dL (0.550-1.02) Glomerular Filtration Rate Calc 108 mL/min (>90) BUN/Creatinine Ratio 18.8 (10.0-20.0) Serum Glucose 124 mg/dL (74-106) Calcium Level 9.6 mg/dL (8.7-10.4) Troponin I High Sensitivity 11 ng/L (</=34) White Blood Count 10.2 10^3/uL (4.4-10.8) Red Blood Count 4.13 10^6/uL (4.0-5.20) Hemoglobin 10.4 g/dL (12.2-16.2) Hematocrit 31.6 % (36.0-46.0) Mean Corpuscular Volume 76.4 fL (80.0-100.0) Mean Corpuscular Hemoglobin 25.2 pg (28.0-32.0) Mean Corpuscular Hemoglobin Concent 32.9 g/dL (32.0-36.0) Red Cell Distribution Width 17.5 % (11.8-14.3) Platelet Count 180 10^3/uL (140-450) Mean Platelet Volume 9.3 fL (6.9-10.8) Neutrophils (%) (Auto) 66.7 % (37.0-80.0) Lymphocytes (%) (Auto) 21.6 % (10.0-50.0) Monocytes (%) (Auto) 7.8 % (0.0-12.0) Eosinophils (%) (Auto) 3.1 % (0.0-7.0) Basophils (%) (Auto) 0.8 % (0.0-2.0) Neutrophils # (Auto) 6.8 10 ^3/uL (1.6-8.6) Lymphocytes # (Auto) 2.2 10 ^3/uL (0.4-5.4) Monocytes # (Auto) 0.8 10 ^3/uL (0-1.3) Eosinophils # (Auto) 0.3 10 ^3/uL (0-0.8) Basophils # (Auto) 0.1 10 ^3/uL (0-0.2) Nucleated Red Blood Cells 0.0 % Prothrombin Time 10.0 sec (9.3-11.8) Prothrombin Time INR 0.94 (0.9-1.15) Activated Partial Thromboplast Time 28.2 SEC (24.5-34.5) Magnesium Level 1.9 mg/dL (1.6-2.6) Total Bilirubin 0.2 mg/dL (0.2-1.0) Aspartate Amino Transferase (AST) 13 U/L (13-40) Alanine Aminotransferase (ALT) 18 U/L (7-40) Alkaline Phosphatase 79 U/L (46-116) B-Type Natriuretic Peptide 55.33 pg/mL (0-100) Total Protein 7.3 g/dL (5.7-8.2) Albumin 4.3 g/dL (3.2-4.8) Other Laboratory Tests 02/22/24 05:19 02/20/24 21:42 Brief Hx & Hospital Course: History of Present Illness 48-year-old female presents with a complaint of chest pain. Patient reports a one day history of substernal chest pain that initially was sharp now is pressure like and radiates to bilateral neck. Denies nausea or vomiting. No dizziness. Denies any other acute complaints. She does report having a history of aortic stenosis and will have an aortic valve replacement next month. Course of hospitalization: Patient had repeat echocardiogram with mean valvular gradient greater than 50 mmHg. Patient has continued to have intermittent chest pain, stating that it was worse when she goes downstairs to smoke. Discussion was made with Cardiology regarding plan of care. Apparently, the patient is to follow up with her preop testing that has been ordered at [facility] so they can proceed with valve replacement as plan. This was discussed with the patient. She is agreeable to be discharged home and continue previous home medications. All questions answered. Physical exam General: Alert and Oriented x3. No acute distress. Well-nourished. Obese Eyes: EOMI. Anicteric. HENT: Moist mucous membranes. Lungs: Clear to auscultation bilaterally. No accessory muscle use. Cardiovascular: Regular rate and rhythm. No murmur. No JVD. Abdomen: Soft, non-tender and non-distended. No palpable masses. Extremities: No edema. Non-tender. Skin: No rashes or lesions. Warm. Neurologic: No focal neurological deficits. CN II-XII grossly intact, but not individually tested. Psychiatric: Cooperative. Appropriate mood and affect. Total time spent with patient discussing and formulating plan of care: 35 minutes. This medical document was created using an electronic medical record system with [employer] dictation system. Although this document has been carefully reviewed, there may still be some phonetic and typographical errors. These areas are purely typographical due to imperfections of the software programs, and do not reflect any compromise in the patient's medical care. Consults/Reason for consult Cardiology: Chest pain, aortic valve stenosis Condition at Discharge: Guarded Final Diagnosis/Problems List Chest pain secondary to Aortic Stenosis Secondary Diagnosis: -chest pain probably secondary to aortic stenosis (bicuspid valve) -obesity -bipolar disorder -asthma -primary hypertension -dyslipidemia -GERD Discharge Disposition: Home Discharge Instruct/Medications Diet: Cardiac 2g Na,low cholest Activity: No Restrictions, As Tolerated Follow Up/Referral: Perform pre op testing at [facility] for AVR Medications: Continue home medications 36 Discharge Statement: "Patient was advised to return to the ER or call 911 if any headaches, dizziness, shortness of breath, chest pain, abdominal pain, bleeding, fevers, or worsening of medical condition. Patient was counseled about treatment plan, medications, possible side effects, patientverbalized understanding. All questions were answered to the best of my ability. This discharge took greater then 30 minutes in planning, reviewing documentation, counseling the patient, and discussing with other team members." ASSESSMENT ASSESSMENT Assessment Chest pain secondary to Aortic Stenosis Date of Service: Feb 22, 2024 Billing Provider: CONNER STATON NP Common Visit Codes: [id number] DISCH DAY >30min CONNER STATON NP Feb 22, 2024 11:54
== END 2024-02-22 12:15 | disposition home or self-care (01) | DRG 200 ==
LOC: ER 21:30 → TELE 02-21 05:15 → EAST 02-21 18:20
PROVIDERS: ADMIT Nurse Practitioner; ATTEND Nurse Practitioner Acute Care
DX: I35.0 Nonrheumatic aortic (valve) stenosis (principal); E03.9 Hypothyroidism, unspecified; Q23.81 Bicuspid aortic valve; E66.01 Morbid (severe) obesity due to excess calories; E78.5 Hyperlipidemia, unspecified; F31.9 Bipolar disorder, unspecified; I10 Essential (primary) hypertension; J45.909 Unspecified asthma, uncomplicated; K21.9 Gastro-esophageal reflux disease without esophagitis; Z91.018 Allergy to other foods; Z68.38 Body mass index [BMI] 38.0-38.9, adult
CPT/HCPCS: 36415; 71045; 80048; 80053; 83735; 83880; 84484; 85025; 85610; 85730; 93005; 93306; 99291; G0378; J2405

== ENCOUNTER 2024-06-08 04:51 | Emergency (ER) | payer MEDICAID ==
[~2024-06-08] VITALS: Ht 167.6 cm; Wt 126.6 kg
[~2024-06-08 04:51] MED LIST changes: +BACL10TA PO; +ESCI1TAB36 PO
--- NOTE | 2024-06-08 06:57 | ED.PDOC ---
Epistaxis- HPI HPI Comments 48-year-old female presents with a chief complaint of epistaxis x onset last night. Patient states that she goes to a Coumadin clinic here at [facility] after having heart valve replacement surgery in April 2024. Patient mentions that she is on Coumadin 7.5mg and noticed after brushing her teeth that she had blood clots and blood in her sputum. Patient is unsure where the source of the bleeding is coming from. Bleeding is not active at this time. No other symptoms or modifying factors present at this time. Chief Complaint: Nose Bleed Time Seen by MD: 06:36 Primary Care Provider: Luke Boss Reviewed Notes: Medications, Allergies Allergies: Coded Allergies: Avocado (Verified Allergy, Unknown, TONGUE NUMBNESS, 01/27/23) [place] Cream Flavor (Verified Allergy, Unknown, TONGUE NUMDNESS, 01/27/23) Pineapple (Verified Allergy, Unknown, TONGUE NUMBNESS, 01/27/23) Watermelon Flavor (Verified Allergy, Unknown, TONGUE NUMBNESS, 01/27/23) Home Meds Reported Medications Baclofen (Baclofen) 10 Mg Tab, 1 TAB PO BID 02/21/24 Escitalopram Oxalate (ESCITALOPRAM OXALATE) 10 Mg Tab, 1 TAB PO DAILY 02/21/24 Hydroxyzine Hcl (Hydroxyzine Hcl) 10 Mg Tab, 10 MG PO BID for HTN, MG 01/27/23 Fenofibrate (FENOFIBRATE) 145 Mg Tab, 1 TAB PO DAILY for CHOLESTEROL, #30 TAB 5 Refills 01/27/23 Tizanidine Hydrochloride (TIZANIDINE HCL) 2 Mg Cap, 2 MG PO TID for MUSCLE SPASMS, CAP 01/27/23 Metoprolol Tartrate (Metoprolol Tartrate) 50 Mg Tab, 25 MG PO DAILY for HTN for 30 Days, MG 01/27/23 Oxycodone Hcl (OXYCODONE HCL) 5 Mg Tb, 30 MG GT FOUR TIMES A DAY PRN for BACK PAIN, TAB 01/27/23 Ondansetron HCl (Ondansetron) 4 Mg Tab, 4 MG PO DAILY for NAUSEA/ VOMITING, TAB 01/27/23 Olanzapine (OLANZAPINE) 5 Mg Tab, 5 MG PO DAILY for DEPRESSION for 30 Days, MG 01/27/23 Meloxicam (Meloxicam) 15 Mg Tab, 1 TAB PO DAILY for OSTEOARTHRITIS, #30 TAB 2 Refills 01/27/23 Levothyroxine Sodium (Levothyroxine Sodium) 100 Mcg Tab, 100 MCG PO QAM for LOW THYROID for 30 Days, MCG 01/27/23 Escitalopram Oxalate (Lexapro) 5 Mg Tab, 1 TAB PO DAILY for DEPRESSION, #30 TAB 2 Refills 01/27/23 Gabapentin (Gabapentin) 300 Mg Cap, 300 MG PO TID, MG 01/27/23 Patients Own Medication (PATIENTS OWN MEDICATION) . PTS OWN MED-OBTAIN FROM PT AND SEND TO RX DRUG: FREQ: RX# EXP: DATE DISP: TECH: 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 Family History Family History: Reviewed,noncontributory to illness Social History Smoker: Non-Smoker Alcohol: Denies ETOH Use Drugs: Denies Drug Use Lives In: Home Constitutional: denies: chills, diaphoresis, fatigue, fever, malaise, sweats, weakness, others EENTM: reports: nose bleeding; denies: blurred vision, double vision, ear bleeding, ear discharge, ear drainage, ear pain, ear ringing, eye pain, eye redness, hearing loss, mouth pain, mouth swelling, nasal discharge, nose congestion, nose pain, photophobia, tearing, throat pain, throat swelling, voice changes, others Respiratory: denies: cough, hemoptysis, orthopnea, SOB at rest, shortness of breath, SOB with excertion, stridor, wheezing, others Cardiovascular: denies: chest pain, dizzy spells, diaphoresis, Dyspnea on exertion, edema, irregular heart beat, left arm pain, lightheadedness, palpitations, PND, syncope, others Gastrointestinal: denies: abdomen distended, abdominal pain, blood streaked bowels, constipated, diarrhea, dysphagia, difficulty swallowing, hematemesis, melena, nausea, poor appetite, poor fluid intake, rectal bleeding, rectal pain, vomiting, others Genitourinary: denies: abnormal vagina bleeding, burning, dyspareunia, dysuria, flank pain, frequency, hematuria, incontinence, pain, , vagina discharge, urgency, others Neurological: denies: dizziness, fainting, headache, left sided numbness, left sided weakness, numbness, paresthesia, pre-existing deficit, right sided numbness, right sided weakness, seizure, speech problems, tingling, tremors, weakness, others Musculoskeletal: denies: back pain, gout, joint pain, joint swelling, muscle pain, muscle stiffness, neck pain, others Integumetry: denies: bruises, change in color, change in hair/nails, dryness, laceration, lesions, lumps, rash, wounds, others Allergic/Immunocompromised: denies: Difficulty Healing, Frequent Infections, Hives, Itching, others Hematologic/Lymphatic: reports: blood clots, easy bleeding; denies: anemia, easy bruising, swollen glands, others Endocrine: denies: excessive hunger, excessive sweating, excessive thirst, excessive urination, flushing, intolerance to cold, intolerance to heat, unexplained weight gain, unexplained weight loss, others Psychiatric: denies: anxiety, bipolar disorder, depression, hopeless, panic disorder, schizophrenia, sleepless, suicidal, others All Other Systems: Reviewed and Negative Physical Exam General Appearance: No Apparent Distress, Obese, Other (HEALING SCAR MIDSTERNUM) HEENT: Normal ENT Inspection, Pharynx Normal, TMs Normal, Other (No active bleeding) Neck: Full Range of Motion, Non-Tender, Normal, Normal Inspection Respiratory: Chest Non-Tender, Lungs Clear, No Accessory Muscle Use, No Respiratory Distress, Normal Breath Sounds Cardiovascular: No Edema, No JVD, No Murmur, No Gallop, Normal Peripheral Pulses, Regular Rate/Rhythm Breast Exam: Deferred Gastrointestinal: No Organomegaly, Non Tender, No Pulsatile Mass, Normal Bowel Sounds, Soft Genitalia: Deferred Pelvic: Deferred Rectal: Deferred Extremities: No calf tenderness, Normal capillary refill, Normal inspection, Normal range of motion, Non-tender, No pedal edema Musculoskeletal : Apperance: Normal Neurologic: Alert, 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 Was a procedure done?: No Differential Diagnosis (NSB) Differential Diagnosis: Anterior Nasal Bleed, Posterior Nasal Bleed, Coagulopathy, Other X-Ray, Labs, Meds, VS Vital Signs Date Time Temp Pulse Resp B/P (MAP) Pulse Ox O2 Delivery O2 Flow Rate FiO2 06/08/24 07:41 83 16 97 Room Air 06/08/24 07:41 97.8 85 16 114/58 (76) 97 97.8 06/08/24 04:59 99.1 99 20 142/73 (96) 94 Lab Test 06/08/24 06:50 Range/Units White Blood Count 9.0 4.4-10.8 10^3/uL Red Blood Count 3.54 L 4.0-5.20 10^6/uL Hemoglobin 8.5 L 12.2-16.2 g/dL Hematocrit 27.0 L 36.0-46.0 % Mean Corpuscular Volume 76.1 L 80.0-100.0 fL Mean Corpuscular Hemoglobin 24.0 L 28.0-32.0 pg Mean Corpuscular Hemoglobin Concent 31.6 L 32.0-36.0 g/dL Red Cell Distribution Width 19.8 H 11.8-14.3 % Platelet Count 210 140-450 10^3/uL Mean Platelet Volume 8.7 6.9-10.8 fL Neutrophils (%) (Auto) 70.0 37.0-80.0 % Lymphocytes (%) (Auto) 14.0 10.0-50.0 % Monocytes (%) (Auto) 10.2 0.0-12.0 % Eosinophils (%) (Auto) 5.2 0.0-7.0 % Basophils (%) (Auto) 0.6 0.0-2.0 % Neutrophils # (Auto) 6.3 1.6-8.6 10 ^3/uL Lymphocytes # (Auto) 1.3 0.4-5.4 10 ^3/uL Monocytes # (Auto) 0.9 0-1.3 10 ^3/uL Eosinophils # (Auto) 0.5 0-0.8 10 ^3/uL Basophils # (Auto) 0.1 0-0.2 10 ^3/uL Nucleated Red Blood Cells 0.5 % Prothrombin Time 26.9 H 9.3-11.8 sec Prothrombin Time INR 2.81 H 0.9-1.15 Activated Partial Thromboplast Time 43.3 H 24.5-34.5 SEC Sodium Level 136 136-145 mmol/L Potassium Level 4.2 3.5-5.1 mmol/L Chloride Level 100 98-107 mmol/L Carbon Dioxide Level 29 20-31 mmol/L Anion Gap 7 5-15 Blood Urea Nitrogen 8 L 9-23 mg/dL Creatinine 0.75 0.550-1.02 mg/dL Glomerular Filtration Rate Calc 98 >90 mL/min BUN/Creatinine Ratio 10.7 10.0-20.0 Serum Glucose 104 74-106 mg/dL Calcium Level 9.6 8.7-10.4 mg/dL 48-year-old female presents here with epistaxis. On my evaluation the epistaxis has resolved. She is currently on Coumadin but has not had her Coumadin levels measured for some time. Blood work has been done which demonstrates a INR of 2.81 which is an appropriate range. She does have evidence of anemia of 8.5. This is lower than her hemoglobin of 10.5 approximately 5 months ago in January 28, 2024. However given she had no longer has any active bleeding, and her hemoglobin is not less than 7, no blood transfusion is required at this time. I did discuss with the patient to continue her Coumadin dose of 7.5 mg daily. She needs to follow up with the Coumadin Clinic. Additionally advised her that if any point she has heavy bleeding again she is to return back to the emergency room immediately. Patient agreeable. Time of 1ST Reevaluation: 07:06 Reevaluation 1ST: Unchanged Time of 2ND Reevaluation: 08:44 Reevaluation 2ND: Improved Patient Education/Counseling: Diagnosis, Treatment, Prognosis Family Education/Counseling: Diagnosis, Treatment, Prognosis Departure 1 Departure Time of Disposition: 09:00 Impression: Primary Impression: Epistaxis Additional Impressions: Bleeding on Coumadin Anemia Qualified Codes: D50.8 - Other iron deficiency anemias Disposition: 01 HOME / SELF CARE / HOMELESS Condition: Fair Additional Instructions: Your Coumadin level is 2.81 today. Continue taking your Coumadin dose of 7.5 mg daily. Please follow up with the Coumadin Clinic. If you have heavy bleeding again please return back to the emergency room immediately. Patient agreeable. Discharged With: Self Critical Care Note Critical Care Time?: No Stability Stability form required: No Heart Score Heart Score: Heart Score Response (Comments) Value History N/A 0 EKG N/A 0 Age N/A 0 Risk Factors N/A 0 Troponin N/A 0 Total 0 I personally scribed for SINA SIMON MD ([email or web address]) on 06/08/24 at 06:57. Electronically submitted by Jeff Woo ([email or web address]). I personally scribed for SINA SIMON MD ([email or web address]) on 06/08/24 at 08:28. Electronically submitted by Jeff Woo ([email or web address]). SINA SIMON MD Jun 08, 2024 06:57
[2024-06-08 07:15] LABS: Basophils # (auto) 0.1 10 ^3/uL (0-0.2); Basophils % (auto) 0.6 % (0.0-2.0); Eosinophils # (auto) 0.5 10 ^3/uL (0-0.8); Eosinophils % (auto) 5.2 % (0.0-7.0); Hemoglobin 8.5 g/dL (12.2-16.2); Lymphocytes # (auto) 1.3 10 ^3/uL (0.4-5.4); Mean Corpuscular Hgb Conc. 31.6 g/dL (32.0-36.0); Mean Corpuscular Volume 76.1 fL (80.0-100.0); Monocytes # (auto) 0.9 10 ^3/uL (0-1.3); Monocytes % (auto) 10.2 % (0.0-12.0); Neutrophils # (auto) 6.3 10 ^3/uL (1.6-8.6); Nucleated Red Blood Cells % 0.5 %; Platelet Count (auto) 210 10^3/uL (140-450); Red Blood Cells 3.54 10^6/uL (4.0-5.20); Red Cell Distribution Width 19.8 % (11.8-14.3)
[2024-06-08 07:29] LABS: Chloride 100 mmol/L (98-107); Potassium 4.2 mmol/L (3.5-5.1); Sodium 136 mmol/L (136-145)
[2024-06-08 07:30] LABS: Anion Gap 7 (5-15); Calcium 9.6 mg/dL (8.7-10.4); Carbon Dioxide 29 mmol/L (20-31)
[2024-06-08 07:31] LABS: INR 2.81 (0.9-1.15); Partial Thromboplastin Time 43.3 SEC (24.5-34.5); Prothrombin Time 26.9 sec (9.3-11.8)
[2024-06-08 07:35] LABS: BUN/Creatinine Ratio 10.7 (10.0-20.0); Glucose 104 mg/dL (74-106)
[2024-06-08 07:42] LABS: Blood Urea Nitrogen 8 mg/dL (9-23)
[2024-06-08 08:57] VITALS: BP 120/45; PULSE 82; RESP 16; TEMP 98; O2SAT 98
== END 2024-06-08 08:58 | disposition home or self-care (01) ==
LOC: ER 04:51
DX: R04.0 Epistaxis (principal); D50.8 Other iron deficiency anemias; D68.32 Hemorrhagic disorder due to extrinsic circulating anticoagulants; F32.A Depression, unspecified; Z79.01 Long term (current) use of anticoagulants; Z79.1 Long term (current) use of non-steroidal anti-inflammatories (NSAID); Z79.890 Hormone replacement therapy; Z79.899 Other long term (current) drug therapy; Z95.2 Presence of prosthetic heart valve
CPT/HCPCS: 36415; 80048; 85025; 85610; 85730

== ENCOUNTER 2024-06-25 14:07 | Emergency (ER) | payer MEDICAID ==
[~2024-06-25] VITALS: Ht 167.6 cm; Wt 125.6 kg
[2024-06-25 16:57] LABS: Basophils # (auto) 0.1 10 ^3/uL (0-0.2); Eosinophils # (auto) 0.9 10 ^3/uL (0-0.8); Eosinophils % (auto) 8.9 % (0.0-7.0); Hemoglobin 11.3 g/dL (12.2-16.2); Lymphocytes # (auto) 1.5 10 ^3/uL (0.4-5.4); Lymphocytes % (auto) 15.6 % (10.0-50.0); Mean Corpuscular Hemoglobin 26.1 pg (28.0-32.0); Mean Corpuscular Hgb Conc. 32.2 g/dL (32.0-36.0); Mean Corpuscular Volume 81.1 fL (80.0-100.0); Monocytes # (auto) 0.8 10 ^3/uL (0-1.3); Monocytes % (auto) 8.3 % (0.0-12.0); Neutrophils # (auto) 6.5 10 ^3/uL (1.6-8.6); Neutrophils % (auto) 66.2 % (37.0-80.0); Nucleated Red Blood Cells % 0.2 %; Platelet Count (auto) 258 10^3/uL (140-450); Red Blood Cells 4.32 10^6/uL (4.0-5.20); White Blood Cell 9.8 10^3/uL (4.4-10.8)
[2024-06-25 17:25] LABS: INR 2.79 (0.9-1.15); Prothrombin Time 26.7 sec (9.3-11.8)
[2024-06-25 17:28] LABS: Alanine Aminotransferase 36 U/L (7-40); Albumin 4.5 g/dL (3.2-4.8); Alkaline Phosphatase 86 U/L (46-116); Anion Gap 5 (5-15); Aspartate Aminotransferase 29 U/L (13-40); BUN/Creatinine Ratio 16.7 (10.0-20.0); Blood Urea Nitrogen 13 mg/dL (9-23); Calcium 9.9 mg/dL (8.7-10.4); Carbon Dioxide 28 mmol/L (20-31); Chloride 104 mmol/L (98-107); Potassium 4.5 mmol/L (3.5-5.1); Sodium 137 mmol/L (136-145)
[2024-06-25 17:33] LABS: Bilirubin, Total 0.2 mg/dL (0.2-1.0); Glucose 114 mg/dL (74-106)
--- NOTE | 2024-06-25 17:33 | DVH ---
CLINICAL HISTORY: vomiting blood TECHNIQUE: CT of the abdomen and pelvis was performed without intravenous contrast. This exam was per formed according to our departmental dose optimization program. Up-to-date CT equipment and radiation dose reduction techniques are utilized as appropriate. CTDI: 25.61 DLP: 1559.16 WID: COMPARISON: None FINDINGS: Lower Thorax: There is a small right pleural effusion. Median sternotomy wires are present. The heart size is upper limits of normal. Linear scarring in the basilar lungs, minimal. Liver and Biliary system: Hepatomegaly measuring 20 cm craniocaudal with moderate hepatic steatosis. No definite hepatic lesion. Gallbladder is normal caliber. There is no biliary ductal dilatation. Spleen: Mild splenomegaly. Adrenal Glands and Kidneys: Normal right adrenal gland. There is a 4.1 cm left adrenal gland adenoma on series 5, image 55. There is no hydronephrosis or nephrolithiasis. Pancreas and Retroperitoneum: Unremarkable. Aorta and Major Vessels: Aortoiliac vessels are normal in caliber with trace calcified atheroscleroti c plaque. Bowel, Mesentery and Peritoneal space: The small and large bowel loops are normal in caliber. There s cattered contrast predominantly in the mid to distal stomach, small bowel loops and proximal large chetan wel. There is no free air or fluid collection. No mesenteric lymphadenopathy. Pelvis: There is a cyst in the left ovary measuring 3.3 cm on series 5, image 164. There is an interm ediate density lesion appearing to be subserosal off the left uterine fundus on series 5, image 161. There is no pelvic lymphadenopathy. The urinary bladder is mildly distended. Abdominal wall and Osseous Structures: No destructive osseous lesion. Lower thoracic and lumbar spond ylosis. Prior laminectomy at L4 and L5. Prior posterior spinal fixation hardware with transpedicula r screws and bilateral rods at L3-L5 and interbody spacer at L4-L5. No destructive osseous lesion. Th ere is a tiny fat containing umbilical hernia. IMPRESSION: 1. No noncontrast evidence of acute abnormality. 2. Small right pleural effusion 3. Hepatosplenomegaly with moderate diffuse hepatic steatosis. 4. Intermediate density lesion appearing subserosal off the left uterine fundus likely a subserosal f ibroid. 5. Left ovarian cystic lesion likely a follicular cyst if the patient is menstruating. 6. No fluid collection or free air.
--- NOTE | 2024-06-25 19:35 | ED.PDOC ---
History of Present Illness HPI Comments 48-year-old female complaining of bleeding ever nose, coughing up blood. Patient states she was started her menstrual today. Patient concerned because she was on warfarin. States she had her levels checked last week Monday and they are within normal range. Patient states she had heart surgery done on May 09. Since then she has been having he was complications with bleeding. States she has been having some intermittent shortness a breath. Chief Complaint: GI Bleed Time Seen by MD: 15:23 Primary Care Provider: Luke Boss Reviewed Notes: Nurses Notes Allergies: Coded Allergies: Avocado (Verified Allergy, Unknown, TONGUE NUMBNESS, 01/27/23) [place] Cream Flavor (Verified Allergy, Unknown, TONGUE NUMDNESS, 01/27/23) Pineapple (Verified Allergy, Unknown, TONGUE NUMBNESS, 01/27/23) Watermelon Flavor (Verified Allergy, Unknown, TONGUE NUMBNESS, 01/27/23) Home Meds Reported Medications Baclofen (Baclofen) 10 Mg Tab, 1 TAB PO BID 02/21/24 Escitalopram Oxalate (ESCITALOPRAM OXALATE) 10 Mg Tab, 1 TAB PO DAILY 02/21/24 Hydroxyzine Hcl (Hydroxyzine Hcl) 10 Mg Tab, 10 MG PO BID for HTN, MG 01/27/23 Fenofibrate (FENOFIBRATE) 145 Mg Tab, 1 TAB PO DAILY for CHOLESTEROL, #30 TAB 5 Refills 01/27/23 Tizanidine Hydrochloride (TIZANIDINE HCL) 2 Mg Cap, 2 MG PO TID for MUSCLE SPASMS, CAP 01/27/23 Metoprolol Tartrate (Metoprolol Tartrate) 50 Mg Tab, 25 MG PO DAILY for HTN for 30 Days, MG 01/27/23 Oxycodone Hcl (OXYCODONE HCL) 5 Mg Tb, 30 MG GT FOUR TIMES A DAY PRN for BACK PAIN, TAB 01/27/23 Ondansetron HCl (Ondansetron) 4 Mg Tab, 4 MG PO DAILY for NAUSEA/ VOMITING, TAB 01/27/23 Olanzapine (OLANZAPINE) 5 Mg Tab, 5 MG PO DAILY for DEPRESSION for 30 Days, MG 01/27/23 Meloxicam (Meloxicam) 15 Mg Tab, 1 TAB PO DAILY for OSTEOARTHRITIS, #30 TAB 2 Refills 01/27/23 Levothyroxine Sodium (Levothyroxine Sodium) 100 Mcg Tab, 100 MCG PO QAM for LOW THYROID for 30 Days, MCG 01/27/23 Escitalopram Oxalate (Lexapro) 5 Mg Tab, 1 TAB PO DAILY for DEPRESSION, #30 TAB 2 Refills 01/27/23 Gabapentin (Gabapentin) 300 Mg Cap, 300 MG PO TID, MG 01/27/23 Patients Own Medication (PATIENTS OWN MEDICATION) . PTS OWN MED-OBTAIN FROM PT AND SEND TO RX DRUG: FREQ: RX# EXP: DATE DISP: TECH: 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 Hx Family History Family History: Reviewed,noncontributory to illness Social History Smoker: Non-Smoker Alcohol: Denies ETOH Use Drugs: Denies Drug Use Lives In: Home Constitutional: denies: chills, diaphoresis, fatigue, fever, malaise, sweats, weakness, others EENTM: reports: nose bleeding; denies: blurred vision, double vision, ear bleeding, ear discharge, ear drainage, ear pain, ear ringing, eye pain, eye redness, hearing loss, mouth pain, mouth swelling, nasal discharge, nose congestion, nose pain, photophobia, tearing, throat pain, throat swelling, voice changes, others Respiratory: reports: SOB at rest; denies: cough, hemoptysis, orthopnea, shortness of breath, SOB with excertion, stridor, wheezing, others Cardiovascular: denies: chest pain, dizzy spells, diaphoresis, Dyspnea on exertion, edema, irregular heart beat, left arm pain, lightheadedness, palpitations, PND, syncope, others Gastrointestinal: reports: hematemesis, nausea; denies: abdomen distended, abdominal pain, blood streaked bowels, constipated, diarrhea, dysphagia, difficulty swallowing, melena, poor appetite, poor fluid intake, rectal bleeding, rectal pain, vomiting, others Genitourinary: denies: abnormal vagina bleeding, burning, dyspareunia, dysuria, flank pain, frequency, hematuria, incontinence, pain, , vagina discharge, urgency, others Neurological: denies: dizziness, fainting, headache, left sided numbness, left sided weakness, numbness, paresthesia, pre-existing deficit, right sided n umbness, right sided weakness, seizure, speech problems, tingling, tremors, weakness, others Musculoskeletal: denies: back pain, gout, joint pain, joint swelling, muscle pain, muscle stiffness, neck pain, others Integumetry: denies: bruises, change in color, change in hair/nails, dryness, laceration, lesions, lumps, rash, wounds, others Allergic/Immunocompromised: denies: Difficulty Healing, Frequent Infections, Hives, Itching, others Hematologic/Lymphatic: reports: easy bleeding; denies: anemia, blood clots, easy bruising, swollen glands, others Physical Exam General Appearance: No Apparent Distress, Normal HEENT: Normal ENT Inspection, Pharynx Normal, TMs Normal Neck: Full Range of Motion, Non-Tender, Normal, Normal Inspection Respiratory: Chest Non-Tender, Lungs Clear, No Accessory Muscle Use, No Resp iratory Distress, Normal Breath Sounds Cardiovascular: No Edema, No JVD, No Murmur, No Gallop, Normal Peripheral Pulses, Regular Rate/Rhythm Breast Exam: Deferred Gastrointestinal: No Organomegaly, Non Tender, No Pulsatile Mass, Normal Bowel Sounds, Soft Genitalia: Deferred Pelvic: Deferred Rectal: Deferred Extremities: No calf tenderness, Normal capillary refill, Normal inspection, Normal range of motion, Non-tender, No pedal edema Musculoskeletal : Apperance: Normal Neurologic: Alert, wrap checker II-XII 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 Was a procedure done?: No Differential Dx Considerations may include: GI bleed, blood loss anemia, epistaxis on blood thinners, X-Ray, Labs, Meds, VS Vital Signs Date Time Temp Pulse Resp B/P (MAP) Pulse Ox O2 Delivery O2 Flow Rate FiO2 06/25/24 14:30 98.8 94 18 141/78 (99) 93 98.8 Lab Test 06/25/24 16:41 Range/Units White Blood Count 9.8 4.4-10.8 10^3/uL Red Blood Count 4.32 4.0-5.20 10^6/uL Hemoglobin 11.3 L 12.2-16.2 g/dL Hematocrit 35.0 L 36.0-46.0 % Mean Corpuscular Volume 81.1 80.0-100.0 fL Mean Corpuscular Hemoglobin 26.1 L 28.0-32.0 pg Mean Corpuscular Hemoglobin Concent 32.2 32.0-36.0 g/dL Red Cell Distribution Width 23.0 H 11.8-14.3 % Platelet Count 258 140-450 10^3/uL Mean Platelet Volume 9.0 6.9-10.8 fL Neutrophils (%) (Auto) 66.2 37.0-80.0 % Lymphocytes (%) (Auto) 15.6 10.0-50.0 % Monocytes (%) (Auto) 8.3 0.0-12.0 % Eosinophils (%) (Auto) 8.9 H 0.0-7.0 % Basophils (%) (Auto) 1.0 0.0-2.0 % Neutrophils # (Auto) 6.5 1.6-8.6 10 ^3/uL Lymphocytes # (Auto) 1.5 0.4-5.4 10 ^3/uL Monocytes # (Auto) 0.8 0-1.3 10 ^3/uL Eosinophils # (Auto) 0.9 H 0-0.8 10 ^3/uL Basophils # (Auto) 0.1 0-0.2 10 ^3/uL Nucleated Red Blood Cells 0.2 % Prothrombin Time 26.7 H 9.3-11.8 sec Prothrombin Time INR 2.79 H 0.9-1.15 Sodium Level 137 136-145 mmol/L Potassium Level 4.5 3.5-5.1 mmol/L Chloride Level 104 98-107 mmol/L Carbon Dioxide Level 28 20-31 mmol/L Anion Gap 5 5-15 Blood Urea Nitrogen 13 9-23 mg/dL Creatinine 0.78 0.550-1.02 mg/dL Glomerular Filtration Rate Calc 93 >90 mL/min BUN/Creatinine Ratio 16.7 10.0-20.0 Serum Glucose 114 H 74-106 mg/dL Calcium Level 9.9 8.7-10.4 mg/dL Total Bilirubin 0.2 0.2-1.0 mg/dL Aspartate Amino Transferase (AST) 29 13-40 U/L Alanine Aminotransferase (ALT) 36 7-40 U/L Alkaline Phosphatase 86 46-116 U/L Total Protein 8.0 5.7-8.2 g/dL Albumin 4.5 3.2-4.8 g/dL X-Ray, Labs, Meds, VS Comment No active bleeding, patient hemodynamically stable, advised to follow up with the PCP tomorrow. Time of 1ST Reevaluation: 19:35 Reevaluation 1ST: Unchanged Patient Education/Counseling: Diagnosis, Treatment, Need For Follow Up (Follow up with PCP tomorrow) Family Education/Counseling: Diagnosis, Treatment Departure 1 Departure Time of Disposition: 19:34 Impression: Primary Impression: Bleeding on Coumadin Additional Impressions: Anemia Qualified Codes: D50.0 - Iron deficiency anemia secondary to blood loss (chronic) Epistaxis Disposition: 01 HOME / SELF CARE / HOMELESS Condition: Stable Discharged With: Self Critical Care Note Critical Care Time?: No Stability Stability form required: No Heart Score Heart Score: Heart Score Response (Comments) Value History N/A 0 EKG N/A 0 Age N/A 0 Risk Factors N/A 0 Troponin N/A 0 Total 0 DAMION LUCERO Jun 25, 2024 19:35
[2024-06-25 22:10] VITALS: BP 158/71; PULSE 88; TEMP 97.8
[2024-06-25 22:15] VITALS: RESP 16; O2SAT 96
== END 2024-06-25 22:48 | disposition home or self-care (01) ==
LOC: ER 14:07
DX: D50.0 Iron deficiency anemia secondary to blood loss (chronic) (principal); R04.0 Epistaxis; R04.2 Hemoptysis; Z79.899 Other long term (current) drug therapy
CPT/HCPCS: 36415; 74176; 80053; 85025; 85610

== ENCOUNTER → 2024-08-27 | Outpatient (CLI) | payer MEDICAID ==
[2024-08-27 13:08] LABS: INR 1.3 (0.9-1.15); Prothrombin Time 13.4 sec (9.3-11.8)
== END | disposition home or self-care (01) ==
LOC: LAB 12:10
PROVIDERS: ATTEND Physician Assistant
DX: D68.69 Other thrombophilia (principal); Z95.2 Presence of prosthetic heart valve
CPT/HCPCS: 36415; 85610

== ENCOUNTER → 2024-09-03 | Outpatient (CLI) | payer MEDICAID ==
[2024-09-03 11:10] LABS: INR 2.45 (0.9-1.15); Prothrombin Time 23.8 sec (9.3-11.8)
== END | disposition home or self-care (01) ==
LOC: LAB 09:36
PROVIDERS: ATTEND Physician Assistant
DX: D68.69 Other thrombophilia (principal); Z95.2 Presence of prosthetic heart valve
CPT/HCPCS: 36415; 85610

== ENCOUNTER 2024-09-20 13:53 | Outpatient (CLI) | payer MEDICAID ==
[2024-09-20 14:30] LABS: INR 1.9 (0.9-1.15); Prothrombin Time 18.9 sec (9.3-11.8)
== END 2024-09-22 17:00 | disposition home or self-care (01) ==
LOC: LAB 13:53
PROVIDERS: ATTEND Internal Medicine Endocrinology, Diabetes & Metabolism
DX: E03.9 Hypothyroidism, unspecified (principal); R79.1 Abnormal coagulation profile
CPT/HCPCS: 36415; 84439; 84443; 85610

== ENCOUNTER 2024-09-24 09:06 | Outpatient (CLI) | payer MEDICAID ==
[2024-09-24 09:20] LABS: Urine Bacteria None Seen /hpf (None Seen)
[2024-09-24 09:24] LABS: Basophils # (auto) 0.1 10 ^3/uL (0-0.2); Basophils % (auto) 0.7 % (0.0-2.0); Eosinophils # (auto) 0.2 10 ^3/uL (0-0.8); Hematocrit 39.3 % (36.0-46.0); Hemoglobin 13.6 g/dL (12.2-16.2); Lymphocytes # (auto) 1.7 10 ^3/uL (0.4-5.4); Lymphocytes % (auto) 20.3 % (10.0-50.0); Mean Corpuscular Hemoglobin 29.5 pg (28.0-32.0); Mean Corpuscular Hgb Conc. 34.5 g/dL (32.0-36.0); Mean Corpuscular Volume 85.5 fL (80.0-100.0); Monocytes # (auto) 0.6 10 ^3/uL (0-1.3); Monocytes % (auto) 7.1 % (0.0-12.0); Neutrophils % (auto) 69.9 % (37.0-80.0); Platelet Count (auto) 175 10^3/uL (140-450); Red Cell Distribution Width 14.8 % (11.8-14.3); White Blood Cell 8.6 10^3/uL (4.4-10.8)
[2024-09-24 09:37] LABS: INR 2.71 (0.9-1.15)
[2024-09-24 09:51] LABS: Albumin 4.4 g/dL (3.2-4.8); Alkaline Phosphatase 86 U/L (46-116); Anion Gap 9 (5-15); Aspartate Aminotransferase 29 U/L (<34); BUN/Creatinine Ratio 18.6 (10.0-20.0); Bilirubin, Direct 0.1 mg/dL (<0.3); Bilirubin, Total 0.3 mg/dL (0.2-1.0); Blood Urea Nitrogen 13 mg/dL (9-23); Calcium 9.8 mg/dL (8.7-10.4); Carbon Dioxide 24 mmol/L (20-31); Cholesterol 150 mg/dL (< 200); Glucose 97 mg/dL (74-106); LDL Cholesterol 96 mg/dL (< 100); Potassium 3.9 mmol/L (3.5-5.1); Sodium 140 mmol/L (136-145); Total Protein 7.4 g/dL (5.7-8.2)
[2024-09-24 09:57] LABS: Urine Blood 3+ /uL (Negative); Urine Clarity Ex.Turbid (Clear); Urine Color Brown (Yellow); Urine Mucus FEW (None Seen); Urine Protein, UAD 1+ (Negative); Urine Specific Gravity 1.048 (1.001-1.035); Urine Squamous Epithelial Cell MOD /hpf (<5); Urine Urobilinogen 2 mg/dL (Negative); Urine WBC 36 /HPF (0-5); Urine pH 5.5 (5.0-9.0)
[2024-09-24 10:18] LABS: Alanine Aminotransferase 55 U/L (7-40); Chloride 107 mmol/L (98-107); HDL Cholesterol 35 mg/dL (40-59); Triglycerides 195 mg/dL (< 150)
== END 2024-09-24 17:00 | disposition home or self-care (01) ==
LOC: LAB 09:06
DX: I10 Essential (primary) hypertension (principal); I35.9 Nonrheumatic aortic valve disorder, unspecified; I28.0 Arteriovenous fistula of pulmonary vessels; R30.0 Dysuria; E78.00 Pure hypercholesterolemia, unspecified; R05.9 Cough, unspecified; Z00.00 Encounter for general adult medical examination without abnormal findings; Z79.899 Other long term (current) drug therapy
CPT/HCPCS: 36415; 80053; 80061; 80076; 81001; 82306; 82728; 83540; 83550; 84436; 84443; 85025; 85610